=== PATIENT | male | born 1960 | race African-American/Black ===

== ENCOUNTER 2018-04-15 07:05 | Emergency (ER) | payer OTHER ==
[~2018-04-15] VITALS: Ht 177.8 cm; Wt 88.0 kg
[2018-04-15 07:08] VITALS: BP 135/79; PULSE 87; RESP 16; TEMP 98.2; O2SAT 98
[2018-04-15] MEDS ORDERED: AMLO5TAB2 PO (07:22)
[2018-04-15] MEDS ORDERED: PRAV20TA2 PO (07:22)
[2018-04-15] MEDS ORDERED: HYDR12.56 PO (07:22)
[2018-04-15] MEDS ORDERED: BACT800T5 PO (07:30)
[2018-04-15] MEDS ORDERED: TRAM50TA PO (07:30)
[2018-04-15] MEDS ORDERED: CLIN150C14 PO (07:30)
--- NOTE | 2018-04-15 07:33 | PD ---
HPI Chief Complaint: Skin Problem Time Seen by Provider: 07:21 Travel History International Travel<30 days: No Contact w/Intl Traveler<30days: No Traveled to known affect area: No History of Present Illness HPI This patient complains of perirectal infection. He had one a few years ago that needed to be drained so he wanted to get evaluation for that. Denies fever or any drainage. He is here on vacation from [place]. Duration 3 days. No fever PFSH Past Medical History Hx Anticoagulant Therapy: No Cardiovascular Problems: Yes (HTN, CHOL) High Cholesterol: Yes Diabetes: No Hypertension: Yes Tetanus Vaccination: < 5 Years Influenza Vaccination: No Past Surgical History Appendectomy: Yes Social History Alcohol Use: Yes (occ) Tobacco Use: No Allergies-Medications (Allergen,Severity, Reaction): Coded Allergies: No Known Allergies (Unverified , 04/15/18) Reported Meds & Prescriptions Reported Meds & Active Scripts Active Clindamycin (Clindamycin HCl) 150 Mg Cap 300 Mg PO Q8HR 7 Days Bactrim DS (Sulfamethoxazole-Trimethoprim) 800-160 Mg Tab 1 Tab PO BID Tramadol (Tramadol HCl) 50 Mg Tab 50 Mg PO Q6H PRN Reported Hydrochlorothiazide 12.5 Mg Tab 12.5 Mg PO DAILY Pravastatin 20 Mg Tab 20 Mg PO DAILY Amlodipine (Amlodipine Besylate) 5 Mg Tab 5 Mg PO DAILY Review of Systems General / Constitutional: No: Fever HENT: No: Headaches Cardiovascular: No: Chest Pain or Discomfort Respiratory: No: Cough Physical Exam Narrative GASTROINTESTINAL: Abdomen soft, non-tender, nondistended. Positive bowel sounds. No hepato-splenomegaly, or palpable masses. No guarding. SKIN: Focused skin assessment reveals no rash or ulcers. Skin is warm and dry. Palpation shows no induration or nodules. Psych: Normal mood and affect. Normal insight and judgment. Perirectal area: Patient has a bit of erythema and tenderness on the left buttock 9:00 perirectal area. There is no fluctuance or drainage or induration. Data Data Last Documented VS Vital Signs Date Time Temp Pulse Resp B/P (MAP) Pulse Ox O2 Delivery O2 Flow Rate FiO2 04/15/18 07:08 98.2 87 16 135/79 (97) 98 MDM Medical Decision Making Medical Screen Exam Complete: Yes Emergency Medical Condition: Yes Medical Record Reviewed: Yes Differential Diagnosis Abscess, cellulitis, carbuncle Narrative Course I have reviewed the patient's electronic medical record. This patient has a early infection starting in the perirectal area. It is nowhere near at a stage for incision and drainage. There is some macular erythema but no induration or fluctuance I prescribed him some antibiotics and something for pain We will aggressively cover community-acquired MRSA Diagnosis Primary Impression: Perirectal infection Additional Instructions: The patient was advised to follow up with their physician and return if they worsen. The patient was warned about potential sedation for the medications they will receive on prescription. Med/Other Pt SpecificInfo: Prescription(s) given Scripts Clindamycin (Clindamycin) 150 Mg Cap 300 MG PO Q8HR for Infection for 7 Days, CAP 0 Refills Prov: Rusty Carroll MD 04/15/18 Sulfamethoxazole-Trimethoprim (Bactrim DS) 800-160 Mg Tab 1 TAB PO BID for Infection, #14 TAB 0 Refills Prov: Rsuty Carroll MD 04/15/18 Tramadol (Tramadol) 50 Mg Tab 50 MG PO Q6H Y for PAIN, #12 TAB 0 Refills Prov: Rusty Carroll MD 04/15/18 Disposition: 01 DISCHARGE HOME Condition: Stable Rusty Carroll MD Apr 15, 2018 07:33
== END 2018-04-15 07:50 | disposition home or self-care (01) ==
LOC: PHED 07:05
DX: K62.89 Other specified diseases of anus and rectum (principal); I10 Essential (primary) hypertension; E78.00 Pure hypercholesterolemia, unspecified
CPT/HCPCS: 99283